=== PATIENT | female | born 1990 | race American Indian/Alaskan Native ===

== ENCOUNTER 2021-05-23 14:05 | Outpatient (CLI) | payer OTHER | END 2021-05-23 14:30 | disposition home or self-care (01) | LOC: PPH VACUNA 14:05 | PROVIDERS: ATTEND Emergency Medicine Pediatric Emergency Medicine | DX: Z23 Encounter for immunization (principal) ==

== ENCOUNTER → 2021-06-21 | Outpatient (CLI) | payer OTHER | END | disposition home or self-care (01) | LOC: PPH VACUNA 08:00 | PROVIDERS: ATTEND Emergency Medicine Pediatric Emergency Medicine | DX: Z23 Encounter for immunization (principal) | CPT/HCPCS: 90686; G0008 ==

== ENCOUNTER → 2023-01-08 | Outpatient (CLI) | payer OTHER | END | disposition home or self-care (01) | LOC: PPH VACUNA | PROVIDERS: ATTEND Emergency Medicine Pediatric Emergency Medicine | DX: Z23 Encounter for immunization (principal) ==

== ENCOUNTER 2024-07-01 10:15 | Outpatient (CLI) | payer OTHER | END 2024-07-01 10:17 | disposition home or self-care (01) | LOC: TOM 10:15 | PROVIDERS: ATTEND Otolaryngology | DX: J34.3 Hypertrophy of nasal turbinates (principal); J34.2 Deviated nasal septum; J30.9 Allergic rhinitis, unspecified ==